=== PATIENT | female | born 1995 | race Caucasian/White ===

== ENCOUNTER → 2021-05-19 09:41 | Outpatient (CLI) | payer OTHER, SELFPAY | PROVIDERS: PCP Internal Medicine; Visit Provider Nurse Practitioner | DX: U07.1 COVID-19 (principal) | CPT/HCPCS: C9803; U0003; U0005 ==

== ENCOUNTER 2024-02-28 08:06 | Emergency (ER) | payer BC, SELFPAY ==
[2024-02-28] VITALS (11 sets, daily range): BP systolic 101–160; BP diastolic 63–106; PULSE 56–108; RESP 16–20; TEMP 36.5–36.9; O2SAT 96–100; BMI 60.3; BMI 54.8
--- NOTE | 2024-02-28 08:45 | EXP.UTC ---
Discharge Plan Disposition Patient Disposition: Home, Self-Care Prescriptions Prescriptions: No Action norethindrone-e.estradiol-iron [ (28)] 1.5 mg-30 mcg (21)/75 mg (7) tablet 1.5 tab PO DAILY Patient Comments: TAKE 1 TABLET BY MOUTH 1 TIME EACH DAY sertraline 100 mg tablet 50 mg PO DAILY lisinopril-hydrochlorothiazide 10-12.5 mg tablet 10 tab PO DAILY Referrals Follow up/Referrals: Yeison Slade [Primary Care Provider] - See instructions Activity Restrictions/Add. Instructions Additional Instructions/Restrictions: Call your family doctor to establish care for this visit to the emergency department and schedule follow-up within 48 hours to ensure improvement. If you have any worsening of your condition or any other concerning signs or symptoms, return to the emergency department or your primary care doctor for further evaluation. Clinical Impressions Clinical Impression: Gastroenteritis Instructions Patient Instructions: DI for Acute Abdominal Pain Print Language Print Language: Nigerien Discharge ED Provider: Shree Staples [facility] [place] General Chief complaint: Abdominal Pain Stated complaint: abd pain, vomiting Mode of Arrival: Ambulatory Source of Information: Patient Time Seen by Provider: 02/28/24 08:45 Description of Symptoms (Recalled from Triage Doc. by RN): STATES ALL OVER ABD PAIN INCLUDING EPIGASTIC AREA, CRAMPING ALL OVER. STATES LOOSE BMS THAT ARE GREASY/OILY LOOKING, NO SOLID BM IN A FEW WEEKS, VOMITED THIS AM D/T THE PAIN HEENT Symptoms (Recalled from RN notes): No Resp Symptoms (Recalled from RN notes): No Skin Symptoms (Recalled from RN notes): No MS Symptoms (Recalled from RN notes): No Functional Status (Recalled from RN notes): WNL History of Present Illness Provider Complaint: Patient states that she has been having diffuse pain in her abdomen for several days that has continued to get worse States she has been having soft greasy stools on and off for several weeks and had similar episode a couple weeks ago that went away but this started a couple days ago and has continued to get worse States started in her lower abdomen and now her abdomen is sore and hurts all over states that when she is up moving around the pain gets worse and this morning it was hurting so bad it made her sick at her stomach, reports pain 10/22 Related Data Home Medications ?Medication ?Instructions ?Recorded ?Confirmed lisinopril 10 10 tab PO DAILY 02/28/24 02/28/24 mg-hydrochlorothiazide 12.5 mg tablet norethindrone 1.5 mg-ethinyl 1.5 tab PO DAILY 02/28/24 02/28/24 estradiol 30 mcg(21)/iron 75 mg(7) tablet (Junel FE 1.30 (28)) sertraline 100 mg tablet 50 mg PO DAILY 02/28/24 02/28/24 Allergies Allergy/AdvReac Type Severity Reaction Status Date / Time No Known Allergies Allergy Verified 02/28/24 09:20 Worker's Comp Is this a Worker's Comp case?: No [facility] Disclaimer: The information contained in this section may have been updated after the patient was seen, as this information can be updated by other users. Social History Smoking Status: Never smoker alcohol intake: never current occupational status: other Travel in the last 8 weeks: None ROS Obtained: Yes All systems reviewed & no additional complaints except as documented and Yes Systems reviewed as appropriate & no additional complaints except as documented Constitutional Constitutional: Reports system reviewed and no additional complaints, except as documented, Reports as per HPI and Denies fever(s) ENT Ears, Nose, Mouth, and Throat: Reports system reviewed and no additional complaints, except as documented and Reports as per HPI Cardiovascular Cardiovascular: Reports system reviewed and no additional complaints, except as documented and Reports as per HPI Respiratory Respiratory: Reports system reviewed and no additional complaints, except as documented and Reports as per HPI Gastrointestinal Gastrointestingal: Reports system reviewed and no additional complaints, except as documented, as per HPI, abdominal pain, cramping, vomiting (x 1 this am from the pain) and other (reports soft greasy stools for several weeks) Physical Exam General General appearance: alert and in no apparent distress Respiratory Respiratory exam: Present normal lung sounds bilaterally; Absent respiratory distress or wheezes Cardiovascular Cardiovascular exam: Present regular rate, normal rhythm and normal heart sounds Abdominal Exam Abdominal exam: Present soft and tenderness (reports diffuse abdominal pain ); Absent distention Neurological Exam Neurological exam: Present alert, oriented X3 and normal gait Medical Decision Making Medical Records Screening: Per USPSTF and CDC recommendations, given the prevalence of disease in our region, it is our hospital?s policy to screen for HIV and viral Hepatitis for all patients aged 18 and over and those with ongoing risk factors. Luigi Inquiry Pt receiving controlled substance: No Luigi was queried for this patient: No Vital Signs: 02/28/24 08:28 Temperature 98.5 F Temperature Source Oral Pulse Rate [Left Brachial] 108 H Respiratory Rate 20 Blood Pressure [Left Arm] 160/94 H Blood Pressure Mean [Left Arm] 116 02 Sat by Pulse Oximetry 96 Lab Data 02/28/24 09:33 02/28/24 09:33 Medical Decision Narrative: Patient complaining of diffuse abdominal pain that started a couple days ago Reports pain is all over and worse if she is up moving around, reports greasy like stools for several weeks Due to complaints of abdominal pain discussed with patient about transfer to the ED and she agreed Called ED and patient was moved to the ED for furhter work up and evaluaton
[2024-02-28 09:19] LABS: Microscopic, Urine URINE MICROSCOPIC (MICROSCOPIC)
[2024-02-28 09:24] LABS: Appearance,Urine SL CLOUDY (Clear); Bilirubin,Urine Negative (Negative); Blood, Urine 1+ (Negative); Color,Urine YELLOW (Yellow); Glucose,Urine (UA) Negative (Negative); Ketones,Urine Negative (Negative); Leukocyte Esterase,Urine Negative (Negative); Nitrate,Urine Negative (Negative); Protein,Urine TRACE (Negative); Specific Gravity, Urine 1.025 (1.005-1.030); Urobilinogen,Urine 0.2 EU/dl (0.2)
[2024-02-28] MEDS: ONDANSETRON 4MG/2ML VIAL 4 MG IV (09:27)
[2024-02-28 09:31] LABS: Bacteria,Urine Trace /lpf; WBC,Urine Occasional #/hpf (0-3)
--- NOTE | 2024-02-28 09:33 | ED_ITS ---
Discharge Plan Disposition Patient Disposition: Home, Self-Care Prescriptions Prescriptions: No Action norethindrone-e.estradiol-iron [ (28)] 1.5 mg-30 mcg (21)/75 mg (7) tablet 1.5 tab PO DAILY Patient Comments: TAKE 1 TABLET BY MOUTH 1 TIME EACH DAY sertraline 100 mg tablet 50 mg PO DAILY lisinopril-hydrochlorothiazide 10-12.5 mg tablet 10 tab PO DAILY Referrals Follow up/Referrals: Yeison Slade [Primary Care Provider] - See instructions Activity Restrictions/Add. Instructions Additional Instructions/Restrictions: Call your family doctor to establish care for this visit to the emergency department and schedule follow-up within 48 hours to ensure improvement. If you have any worsening of your condition or any other concerning signs or symptoms, return to the emergency department or your primary care doctor for further evaluation. Clinical Impressions Clinical Impression: Gastroenteritis Instructions Patient Instructions: DI for Acute Abdominal Pain Print Language Print Language: Citizen Of [place] Discharge ED Provider: Shree Staples General Adult HPI General Chief complaint: Abdominal Pain Stated complaint: abd pain, vomiting Time Seen by Provider: 02/28/24 08:45 Mode of Arrival: Ambulatory Source of Information: Patient Limitations: No Limitations Description of Symptoms (Recalled from ER Triage Doc. by RN): Pt. presents to the ED, transferred from the [facility], with complaints of abdominal pain asnd cramping x 2 weeks. She states it started as epigastric pain about 2 weeks ago. Since then the pain has spread over her abdomen and she has been having greasy, watery stools. She rates the pain 6/10 currently. History of Present Illness HPI narrative: Please note that above description of symptoms, in this electronic medical record under categorization of recalled from ER triage doctor by RN are reflective of an initial nursing assessment, however, is not reflective of my full history and physical exam that was personally taken and clarified. Consequentially, this preceding description of symptoms, which may include the patient's categorized chief complaint in the EMR, do not reflect my personal clinical impression, and the ultimate description of history of present illness and patient stated complaints should be deferred to this section of the note. Unless stated otherwise or congruent with this section of the note, additional signs, symptoms, or incongruence should be interpreted as inaccurate with my clinical impression. Related Data Home Medications ?Medication ?Instructions ?Recorded ?Confirmed lisinopril 10 10 tab PO DAILY 02/28/24 02/28/24 mg-hydrochlorothiazide 12.5 mg tablet norethindrone 1.5 mg-ethinyl 1.5 tab PO DAILY 02/28/24 02/28/24 estradiol 30 mcg(21)/iron 75 mg(7) tablet (Junel FE 1.5/30 (28)) sertraline 100 mg tablet 50 mg PO DAILY 02/28/24 02/28/24 Allergies Allergy/AdvReac Type Severity Reaction Status Date / Time No Known Allergies Allergy Verified 02/28/24 09:20 [facility] Disclaimer: The information contained in this section may have been updated after the patient was seen, as this information can be updated by other users. Social History Smoking Status: Never smoker alcohol intake: never current occupational status: other Travel in the last 8 weeks: None ROS Obtained: Yes All systems reviewed & no additional complaints except as documented Physical Exam General General appearance: alert, in no apparent distress and obese Head Head exam: atraumatic and normocephalic Eye Eye exam: Present normal appearance, PERRL and EOMI Neck Neck exam: Present normal inspection, full ROM and trachea midline Respiratory Respiratory exam: Absent respiratory distress, wheezes, stridor, accessory muscle use or prolonged expiratory phase Cardiovascular Cardiovascular exam: Present regular rate, normal rhythm and other (Pulses equal symmetric in upper and lower extremities) Abdominal Exam Abdominal exam: Present soft and tenderness; Absent distention, guarding, rebound or pulsatile mass Abdominal tenderness: Present diffuse and mild Extremities Exam Extremities exam: Absent edema Neurological Exam Neurological exam: Present alert, oriented X3 and CN II-XII intact; Absent motor sensory deficit Skin Skin exam: Present warm and dry; Absent diaphoresis or erythema Medical Decision Making Medical Records Medical records reviewed: Yes I reviewed the patient's medical records. Screening: Per USPSTF and CDC recommendations, given the prevalence of disease in our region, it is our hospital?s policy to screen for HIV and viral Hepatitis for all patients aged 18 and over and those with ongoing risk factors. Luigi Inquiry Pt receiving controlled substance: No Luigi was queried for this patient: No Vital Signs: 02/28/24 08:28 02/28/24 09:11 02/28/24 09:33 Temperature 98.5 F 97.7 F Temperature Source Oral Oral Pulse Rate 81 Pulse Rate [Left Brachial] 108 H 105 H Respiratory Rate 20 16 Blood Pressure 140/63 Blood Pressure [Left Arm] 160/94 H 143/106 H Blood Pressure Mean Blood Pressure Mean [Left Arm] 116 118 Blood Pressure Source [Left Arm] Automatic Cuff Blood Pressure Position [Left Arm] Sitting 02 Sat by Pulse Oximetry 96 100 99 Oxygen Delivery Method Room Air Room Air 02/28/24 10:00 02/28/24 10:30 02/28/24 11:00 Temperature Temperature Source Pulse Rate 78 56 L 74 Pulse Rate [Left Brachial] Respiratory Rate Blood Pressure 131/71 115/68 115/71 Blood Pressure [Left Arm] Blood Pressure Mean Blood Pressure Mean [Left Arm] Blood Pressure Source [Left Arm] Blood Pressure Position [Left Arm] 02 Sat by Pulse Oximetry 98 98 98 Oxygen Delivery Method Room Air Room Air Room Air 02/28/24 11:31 02/28/24 12:01 02/28/24 12:30 Temperature Temperature Source Pulse Rate 74 82 78 Pulse Rate [Left Brachial] Respiratory Rate Blood Pressure 108/68 L 127/77 128/71 Blood Pressure [Left Arm] Blood Pressure Mean 93 Blood Pressure Mean [Left Arm] Blood Pressure Source [Left Arm] Blood Pressure Position [Left Arm] 02 Sat by Pulse Oximetry 98 98 99 Oxygen Delivery Method Room Air Room Air Room Air 02/28/24 13:00 Temperature Temperature Source Pulse Rate 84 Pulse Rate [Left Brachial] Respiratory Rate Blood Pressure 115/83 Blood Pressure [Left Arm] Blood Pressure Mean Blood Pressure Mean [Left Arm] Blood Pressure Source [Left Arm] Blood Pressure Position [Left Arm] 02 Sat by Pulse Oximetry 98 Oxygen Delivery Method Room Air Lab Data Lab Results 02/28/24 09:06: Urine Color Yellow, Urine Appearance Sl cloudy, Urine pH 8.0, Ur Specific [place] 1.025, Urine Protein Trace, Urine Glucose (UA) Negative, Urine Ketones Negative, Urine Blood 1+ A, Urine Nitrate Negative, Urine Bilirubin Negative, Urine Urobilinogen 0.2, Ur Leukocyte Esterase Negative, Urine RBC 3-5, Urine WBC Occasional, Ur Squamous Epith Cells 5-10, Urine Bacteria Trace 02/28/24 09:33: WBC 12.2 H, RBC 4.29, Hgb 13.4, Hct 35.2 L, MCV 82.1, MCH 31.2, MCHC 38.0 H, RDW 14.5, Plt Count 342, MPV 7.1 L, Neut % (Auto) 77.6, Lymph % (Auto) 17.5, Mayes % (Auto) 4.0, Eos % (Auto) 0.4, Baso % (Auto) 0.5, Neut # (Auto) 9.5 H, Lymph # (Auto) 2.1, Mayes # (Auto) 0.5, Eos # (Auto) 0.0, Baso # (Auto) 0.1, Sodium 134 L, Potassium 3.9, Chloride 103, Carbon Dioxide 25, Anion Gap 9.9, BUN 14, Creatinine 0.60, Estimated Creat Clear 111, Estimated GFR 120, Est GFR ( Amer) 145, Glucose 112 H, Calcium 9.6, Total Bilirubin 0.5, AST 31, ALT 23, Alkaline Phosphatase 100, Total Protein 7.0, Albumin 4.1, Globulin 2.9, Albumin/Globulin Ratio 1.4, Lipase 38, HCG, Quant < 2 02/28/24 09:33: HCG, Quant Cancelled, HIV 1&2 Antibody Rapid Nonreactive 02/28/24 09:33 02/28/24 09:33 Orders (Tests/Meds): ED MEDICATIONS Discontinued Medications Generic Name Dose Route Start Last Admin Trade Name Freq PRN Reason Stop Dose Admin Acetaminophen 1,000 mg 02/28/24 09:38 02/28/24 09:50 Acetaminophen 500mg Tab PO 02/28/24 09:39 1,000 mg ONCE ONE Administration Al Hydrox/Mg Hydrox/Simethicone 30 ml 02/28/24 09:39 02/28/24 09:50 Aluminum/Magnesium/Simethicone 30ml Udc PO 02/28/24 09:40 30 ml ONCE ONE Administration Iopamidol 75 ml 02/28/24 10:47 02/28/24 10:49 Iopamidol-370 (76%);100ml Bottle IV 02/28/24 10:48 75 ml ONCE ONE Administration Ketorolac Tromethamine 15 mg 02/28/24 09:38 02/28/24 09:50 Ketorolac 30mg/Ml Vial IV 02/28/24 09:39 15 mg ONCE ONE Administration Ondansetron HCl 4 mg 02/28/24 09:03 02/28/24 09:27 Ondansetron 4mg/2ml Vial IV 02/28/24 09:04 4 mg ONCE ONE Administration Sodium Chloride 10 ml 02/28/24 10:47 02/28/24 10:49 Sodium Chloride 0.9% 10ml Syr (Rad Only) IV 02/28/24 10:48 10 ml ONCE ONE Administration ORDERS Category Date Time Status CT abdomen pelvis w con Stat Cat Scan 02/28/24 10:35 Completed POCUS Point of Care (ER Only) Stat Exams 02/28/24 09:03 Completed CBC w/Auto Diff [Complete Blood Count Auto Diff] Stat Lab 02/28/24 09:33 Completed CMP [Comprehensive Metabolic Panel] Stat Lab 02/28/24 09:33 Completed HCG,Quantitative Stat Lab 02/28/24 09:33 Completed HIV (1&2) Antibody Rapid Stat Lab 02/28/24 09:33 Completed Hep C Ab with Reflex to RNA Stat Lab 02/28/24 09:33 Received Lipase Stat Lab 02/28/24 09:33 Completed UA [Urinalysis and Microscopic] Stat Lab 02/28/24 09:06 Completed Medical Decision Narrative: 29-year-old female history of section presenting with abdominal pain. Patient states that she has had abdominal pain since yesterday,, however she has had abdominal pain over the past couple of weeks. States that she has had 2 weeks of nonbloody, not mucousy diarrhea as well as nausea. Initially a couple weeks ago, pain was epigastric, radiated to bilateral upper quadrants. Since that time, waxed and waned. Went away for a couple of days. Came back yesterday and is now bilateral lower quadrants, radiates diffusely throughout her abdomen. No fevers or chills, urinary symptoms, vaginal discharge or bleeding, or any other concerns. Is never had pain like this in the past. Still has gallbladder and appendix. History was obtained via conversation with patient. On arrival, patient hemodynamically stable, alert, oriented x4, appropriate, GCS 15, moving all extremities spontaneously, pupils equal and reactive to light. Full physical exam performed and significant for obese. Female in no acute distress. Cardiopulmonary exam normal. Abdomen soft, nondistended, but diffusely tender with mild tenderness. No overlying skin changes. Negative Marcum's and McBurney's point tenderness. Differential includes PUD, gastritis, enteritis, gastroenteritis, pancreatitis, SBO, colitis, diverticulitis, nephrolithiasis, UTI, , cholecystitis, choledocholithiasis, appendicitis, hepatitis, torsion, aortic pathology, mesenteric ischemia among others. Patient placed on continuous cardiac monitoring and continuous pulse ox with initial blood pressure 143/106, heart rate 105, saturation 100% on room air. Patient was given Zofran, Toradol, acetaminophen for symptomatic management and correction of underlying abnormalities. Bedside [id number] ultrasound with negative right upper quadrant findings. Normal gallbladder, nothing to explain patient's pain workup independently interpreted and significant for mild leukocytosis 12.2 with mild neutrophilic predominance. Nonactionable chemistry with normal kidney function and LFTs. hCG and lipase negative. Urinalysis contaminated sample with trace bacteria. No signs of UTI. On reevaluation, patient states that she is feeling much better, although cramping and mild pain is still there. Conversation had with patient regarding utility and risks versus benefits of CT versus not, opted for CT for further information after shared decision making, To make sure everything is okay. On independent interpretation of imaging, patient has diffuse enteritis with free fluid in the abdomen and pelvis without free air, evidence of perforation, or other acute abnormality. See radiology read for full review of final results. On reevaluation, patient still resting comfortably. Given patient presentation, workup, history, this most likely represents gastroenteritis. Because patient at baseline without signs or symptoms of clinical decompensation, deemed appropriate for discharge. Results were relayed to patient who voiced understanding and were agreeable to outpatient management and follow up. I discussed my clinical impression with patient and answered all questions. At this time, the evidence for any other entities in the differential is insufficient to warrant any further testing or ED observation. This was explained as well. Advisory was given that persistent or worsening symptoms require further evaluation. I confirmed the understanding of this discussion. Range Rider disclaimer Much of this encounter note is an electronic social work nurse spoken language to printed text. Electronic social work nurse of the spoken language may permit errors. Although I have reviewed the note, some errors may still exist. Procedures Limited Ultrasound Indication:: Limited RUQ ultrasound Indication: Abdominal pain, crampy Identified structures: -Gallbladder -Gallbladder wall -Common bile duct -Liver Findings: Sonographic Marcum sign: Absent Gallstones: Absent Sludge: Absent Pericholecystic fluid: Absent Maximal GB wall thickness (mm) (normal is </= 3mm): Normal Common bile duct width (mm) (normal is </= 6mm): Too small to visualize Gallbladder width (cm) (normal is < 4cm): Normal Gallbladder length (cm) (normal is < 10cm): Normal Impression: Normal gallbladder No evidence of cholelithiasis No evidence of common bile duct or intrahepatic ductal dilation Images were saved to permanent archive The study was technically adequate CPT 93011-81 This study was performed by me, and I personally interpreted all images/videos. Based on my clinical judgement, these images were adequate and did not necessitate further imaging. Critical Care Critical Care Time Critical Care Time: No
[2024-02-28] MEDS: ALUMINUM/MAGNESIUM/SIMETHICONE 30ML UDC 30 ML PO (09:50)
[2024-02-28] MEDS: ACETAMINOPHEN 500MG TAB 1000 MG PO (09:50)
[2024-02-28] MEDS: KETOROLAC 30MG/ML VIAL 15 MG IV (09:50)
[2024-02-28 09:53] LABS: Basophils # 0.1 K/mm3 (0-0.2); Basophils % 0.5 % (0.1-2.0); Eosinophils % 0.4 % (0.1-12.0); Hematocrit 35.2 % (37.0-47.0); Hemoglobin 13.4 g/dL (12.2-16.2); Lymphocytes # 2.1 K/mm3 (0.7-4.5); Lymphocytes % 17.5 % (10-50); Mean Corpuscular Hemoglobin 31.2 pg (27.0-31.2); Mean Corpuscular Volume 82.1 fl (81-99); Mean Platelet Volume 7.1 fl (7.4-10.4); Monocytes # 0.5 K/mm3 (0.1-1.0); Neutrophils # 9.5 K/mm3 (1.8-7.8); Neutrophils % 77.6 % (37.0-80.0); Platelet Count 342 K/mm3 (142-424); Red Blood Count 4.29 M/mm3 (4.20-5.40); Red Cell Distribution Width 14.5 % (11.5-17.5); White Blood Count 12.2 K/mm3 (4.8-10.8)
[2024-02-28 10:00] LABS: Albumin Level 4.1 g/dl (3.5-5.0); Chloride 103 mmol/L (98-107)
[2024-02-28 10:01] LABS: Potassium 3.9 mmoL/L (3.5-5.1); Sodium 134 mmol/L (136-145)
[2024-02-28 10:03] LABS: Alanine Aminotransferase 23 U/L (12-78); Anion Gap 9.9 mEq/L (5-15); Aspartate Amino Transferase 31 U/L (14-36); Blood Urea Nitrogen 14 mg/dl (7-17); Carbon Dioxide 25 mmol/L (22.0-30.0); Creatinine Clearance Estimated 111 mL/min (50-200); Estimated Glomerular Filt Rate 120 ml/min (>60); GFR (African American) 145 ML/MIN (>60)
[2024-02-28 10:04] LABS: Albumin/Globulin Ratio 1.4 (1.1-1.8); Alkaline Phosphatase 100 U/L (38-126); Bilirubin,Total 0.5 mg/dl (0.2-1.3); Calcium 9.6 mg/dl (8.4-10.2); Globulin 2.9 g/dL (1.3-3.2); Glucose 112 mg/dl (74-100); Lipase 38 U/L (23-300)
[2024-02-28 10:22] LABS: HCG,Quantitative < 2 mIU/ml (0-5.42)
--- NOTE | 2024-02-28 10:35 | CT_ITS ---
FINAL REPORT TECHNIQUE: Postcontrast axial images through the abdomen and pelvis were performed. This study was performed with techniques to keep radiation doses as low as reasonably achievable, (ALARA). Individualized dose reduction techniques using automated exposure control or adjustment of mA and/or kV according to the patient's size were employed. CLINICAL HISTORY: diffuse cramps, worse on sides. diarrhea x14d FINDINGS: Abdomen: The lung bases are clear. The liver parenchyma is homogeneous. The gallbladder is present. The spleen is unremarkable. The adrenals are normal. The pancreas is unremarkable. The kidneys enhance appropriately. The aorta is normal in caliber. There is a small amount of ascites throughout the upper abdomen. There is extensive mucosal thickening throughout the proximal jejunum. Pelvis: The appendix is not identified. The urinary bladder is unremarkable. There is moderate ascites in the pelvis. Fluid demonstrates a mean attenuation value of 8 Hounsfield units. The uterus is anteverted. IMPRESSION: Extensive mucosal inflammatory reaction throughout the jejunum concerning for acute infectious or inflammatory enteritis. Small to moderate ascites in the abdomen and pelvis likely related to the jejunal process. Reviewed, Interpreted and Dictated by Logan Davis MD Transcribed by Delphine Marshall Authenticated and [facility]
[2024-02-28] MEDS: SODIUM CHLORIDE 0.9% 10ML SYR (RAD ONLY) 10 ML IV (10:49)
[2024-02-28] MEDS: IOPAMIDOL-370 (76%);100ML BOTTLE 75 ML IV (10:49)
--- NOTE | 2024-02-28 11:00 | PC.NURSE ---
Pt given water for PO challenge
[2024-02-28 11:59] LABS: HIV (1&2) Antibody Rapid NONREACTIVE (NONREACTIVE)
[2024-02-29 05:27] LABS: HCV Ab Non Reactive (Non Reactive)
== END 2024-02-28 13:40 | disposition home or self-care (01) ==
LOC: UTC 08:12 → ER 08:56
PROVIDERS: Emergency Provider Emergency Medicine; PCP Internal Medicine
DX: K52.9 Noninfective gastroenteritis and colitis, unspecified (principal); R10.9 Unspecified abdominal pain; R11.11 Vomiting without nausea
CPT/HCPCS: 74177; 80053; 81001; 83690; 84702; 85025; 86803; 87389; 96374; 96375; 99285; J1885; J2405; Q9967

== ENCOUNTER 2024-04-16 11:22 | Outpatient (CLI) | payer BC, SELFPAY ==
[2024-04-16 12:08] LABS: Iron 51 ug/dL (37-170)
[2024-04-16 12:17] LABS: Total Iron Binding Capacity 442 ug/dL (265-497)
[2024-04-16 12:44] LABS: Ferritin 18.7 ng/ml (6.24-137)
[2024-04-17 17:01] LABS: Deamidated Gliadin Abs, IgA 2 units (0-19); Deamidated Gliadin Abs, IgG 2 units (0-19); Tissue Transglutaminase IgA Ab <2 U/mL (0-3); Tissue Transglutaminase IgG Ab <2 U/mL (0-5)
[2024-04-18 13:11] LABS: Endomysial IgA Antibody Negative (Negative)
[2024-04-19 08:22] LABS: Reticulin IgA Antibody Negative titer (Neg:<1:2.5)
[2024-04-19 15:13] LABS: Saccharomyces cerevisiae, IgA <20.0 Units (0.0-24.9); Saccharomyces cerevisiae, IgG <20.0 Units (0.0-24.9)
== END 2024-04-16 23:59 | disposition home or self-care (01) ==
LOC: LAB 11:23
PROVIDERS: PCP Internal Medicine; Visit Provider Internal Medicine Gastroenterology
DX: R19.5 Other fecal abnormalities (principal); R14.0 Abdominal distension (gaseous); K52.9 Noninfective gastroenteritis and colitis, unspecified; D64.9 Anemia, unspecified; R10.84 Generalized abdominal pain
CPT/HCPCS: 36415; 82728; 83516; 83540; 83550; 86255; 86256; 86671

== ENCOUNTER 2024-06-19 06:17 | Day surgery (SDC) | payer BC, SELFPAY ==
[2024-06-17 13:49] VITALS: BMI 56.7
[2024-06-19 06:54] VITALS: BP 118/64; PULSE 75; RESP 18; TEMP 36.8; O2SAT 97
[2024-06-19 06:59] LABS: Urine Pregnancy, HCG Qual. Negative (Negative)
[2024-06-19] MEDS: LACTATED RINGERS 1000ML 1,000 ML 50 ML IV (07:04)
--- NOTE | 2024-06-19 07:32 | EXP.ANES.CKL ---
[facility] Disclaimer: The information contained in this section may have been updated after the patient was seen, as this information can be updated by other users. Medical History Anxiety History of COVID-19 History of gastroesophageal reflux (GERD) Hypertension Surgical History [place] teeth removed History of endometrial ablation H/O adenoidectomy History of section History of tonsillectomy Family History Other Breast cancer Cancer Colon cancer Social History (Updated 06/19/24 @ 07:02 by Luz Santos RN) Smoking Status: Former smoker tobacco type: cigarettes packs per day: 1 alcohol intake: never substance use type: denies use current occupational status: employed Travel in the last 8 weeks: None caffeine: Yes [facility] Anesthesia Checklist Patient Identification Patient Identification: Verbal (Name & ) Structural Data Admitted From: Home Planned Operative Procedure/s: egd NPO Status Verified Time NPO: 00:00 Airway Assessment Mallampati Score:: Class III C-Spine Mobility Assessed: Yes TMJ Mobility Assessed: Yes Dentition: Good Dentition Neurological Assessment Level of Consciousness: Awake, Alert and Appropriate Anesthesia Plan Anesthesia Risk discussed: Yes Anesthesia Plan: Verified ASA Class: III Anesthesia Type: MAC
--- NOTE | 2024-06-19 07:58 | P.HP_ITS ---
History of Present Illness *Admission Date: 06/19/24 *Reason for visit:: Abdominal pain/bloating and abnormal CAT scan *History of present illness: Mrs. Collins is a 29-year-old female who is here for initial gastroenterology consultation. The patient has had recurring abdominal pain and was in the emergency department on February 27 at which time she had a CAT scan of the abdomen and pelvis.This did show fairly extensive mucosal inflammatory reaction throughout the jejunum concerning for infectious enteritis. At that time, her white blood cell count was 12,000. She had normal hemoglobin 13.4 and her hematocrit was 35.2. Additional labs showed normal liver chemistries and normal lipase 38. The patient does state that this all began 6 to 7 months ago and she has had more frequent episodic pain in the last couple of months. This does start out like menstrual cramps and is in the lower abdomen but then begins to move upwards in a frame like pattern into the right upper quadrant and across to the left upper quadrant. She does state that when she lays on either side it hurts more on that side. She has had moderate bloating but no gassiness or belching. She does get nausea and vomiting with the intensity of pain. She has had loose stools that began 6 to 7 months ago but not watery. She does feel as if she fully evacuates. She has gained some weight and had talked about GLP-1 peptide treatment with her PCP. [facility] Disclaimer: The information contained in this section may have been updated after the patient was seen, as this information can be updated by other users. Medical History Anxiety History of COVID-19 History of gastroesophageal reflux (GERD) Hypertension Surgical History Stow teeth removed History of endometrial ablation H/O adenoidectomy History of section History of tonsillectomy Family History Other Breast cancer Cancer Colon cancer Social History (Updated 06/19/24 @ 07:33 by Nito Gutierrez CRNA) Smoking Status: Former smoker tobacco type: cigarettes packs per day: 1 alcohol intake: never substance use type: denies use current occupational status: employed Travel in the last 8 weeks: None caffeine: Yes Have you lived/traveled outside [place] in past 30 days?: No Contact w/someone who lives/traveled outside [place] past 30 days?: No Exposure to someone with infectious disease in past 14 days?: No Do you have a fever (greater than 100.4 F or 38 C)?: No Have you tested positive for COVID-19: Yes Exposed to someone with COVID-19 in past 14 days?: No Do you have a sore throat?: No Do you have a cough?: No Do you have any weakness?: No Are you experiencing any nausea/vomitting?: No Do you have any diarrhea?: No Are you experiencing any unusual bleeding?: No Do you have any muscle aches/pain?: No Do you have any abdominal pain?: No Are you experiencing loss of taste or smell?: No Review of Systems Review of Systems Review of systems (narrative): Negative *Cardiovascular Comments: Negative *Gastrointestinal Comments: Negative *Genitourinary Comments: Negative *Musculoskeletal Comments: Negative *Neurologic Comments: Negative Meds Home Medications and Allergies Home Medications ?Medication ?Instructions ?Recorded ?Confirmed ?Type lisinopril 10 10 tab PO DAILY 02/28/24 06/19/24 History mg-hydrochlorothiazide 12.5 mg tablet sertraline 100 mg tablet 100 mg PO DAILY 02/28/24 06/19/24 History New Prescriptions to Start Prescriptions: Allergies Allergy/AdvReac Type Severity Reaction Status Date / Time No Known Allergies Allergy Verified 06/19/24 06:53 Exam Data for Last 24 hours Vital signs and Labs for Last 24 Hours: Temp Pulse Resp BP Pulse Ox O2 Del Method 98.3 F 75 18 118/64 97 Room Air 06/19/24 06:54 06/19/24 06:54 06/19/24 06:54 06/19/24 06:54 06/19/24 06:54 06/19/24 06:54 Laboratory Results - last 24 hr 06/19/24 06:42: Urine HCG, Qual Negative I & O for Last 24 hours: Intake & Output 06/16/24 06/17/24 06/18/24 06/19/24 23:59 23:59 23:59 23:59 Weight 310 lb *Routine HEENT Exam Head: Present normocephalic Eye: Present EOMI and PERRL ENT: Present mucous membranes moist *Routine Neck Exam Neck: Present supple *Routine Respiratory Exam Respiratory: Present CTA bilaterally *Routine Cardiovascular Exam Cardiovascular: Present RRR *Routine Abdominal Exam Abdominal: Present soft and normoactive bowel sounds; Absent tenderness *Routine Rectal Exam Rectal:: deferred *Routine Genitalia Exam Genitalia:: deferred *Routine Extremities Exam Extremities: Absent cyanosis, clubbing or edema *Routine Skin Exam Skin: Present warm; Absent rash *Routine Neurological Exam Neurological: Present alert and oriented X3 Assessment and Plan *Assessment and plan (1) Jejunitis: Status: Acute Category: Medical Code(s): K52.9 - Noninfective gastroenteritis and colitis, unspecified (2) Bloating: Status: Acute Category: Medical Code(s): R14.0 - Abdominal distension (gaseous) (3) Loose bowel movements: Status: Acute Category: Medical Code(s): R19.5 - Other fecal abnormalities (4) Borderline anemia: Status: Acute Category: Medical Code(s): D64.9 - Anemia, unspecified Plan A/P: 1. Abnormal CAT scan with evidence of extensive mucosal inflammatory reaction throughout the jejunum with associated abdominal pain and bloating is the preprocedural diagnosis. The patient will be anesthetized/sedated using MAC sedation. The patient has been seen and examined. Cardiac and lung assessment prior to the examination is stable. Proceed with planned EGD/enteroscopy
[2024-06-19 08:00] VITALS: O2SAT 100
--- NOTE | 2024-06-19 08:11 | [facility].PROCNOTE ---
[facility] Procedure Note Date: 06/19/24 Time: 08:27 Procedure Note:: Small bowel enteroscopy procedure Report: Endoscopy/small bowel enteroscopy with cold biopsies Endoscopost: Chato Lamas II, MD Referring Physician: Yeison Slade M.D. Date of Procedure: June 19, 2024 Equipment: Olympus GIF 190 standard upper endoscope Sedation: MAC sedation Indications: Mrs. Collins is a 29-year-old female who is here for diagnostic enteroscopy. The patient has had recurring abdominal pain and was in the emergency department on February 27 at which time she had a CAT scan of the abdomen and pelvis.This did show fairly extensive mucosal inflammatory reaction throughout the jejunum concerning for infectious enteritis. At that time, her white blood cell count was 12,000. She had normal hemoglobin 13.4 and her hematocrit was 35.2. Additional labs showed normal liver chemistries and normal lipase 38. The patient does state that this all began 6 to 7 months ago and she has had more frequent episodic pain in the last couple of months. This does start out like menstrual cramps and is in the lower abdomen but then begins to move upwards in a frame like pattern into the right upper quadrant and across to the left upper quadrant. She does state that when she lays on either side it hurts more on that side. She has had moderate bloating but no gassiness or belching. She does get nausea and vomiting with the intensity of pain. She has had loose stools that began 6 to 7 months ago but not watery. She does feel as if she fully evacuates. She has gained some weight and had talked about GLP-1 peptide treatment with her PCP. Since her initial visit with me on 04/16/2024, she has had no recurring pain. Procedure: Prior to the procedure, a history and physical exam was performed, and patient's medications and allergies were reviewed. The risks, benefits and alternatives of the sedation and procedure were discussed with the patient. All questions were answered and informed consent was obtained. The patient was brought to the procedure room. Patient identification and proposed procedure were verified by the physician and the nurse. The patient was placed in a left lateral decubitus position and the scope was passed under direct vision. Throughout the procedure, the patient's blood pressure, pulse, and oxygen saturations were monitored continuously. The upper GI endoscopy was accomplished without difficulty. The patient tolerated the procedure well. Findings: The scope was passed directly into the upper esophagus and advanced to the proximal to mid jejunum and approximately 40 to 50 cm distal to the ligament of Treitz. The jejunum mucosa and conniventes were entirely normal as was the post bulbar duodenum and duodenal bulb were normal with normal mucosa and conniventes. Cold biopsies were taken from the duodenum to rule out celiac disease. There was no scalloping. The scope was withdrawn through a normal duodenal bulb and pylorus into the stomach. The antrum was normal. There was some mosaic/reticular pattern to the mucosa in the body and fundus and biopsies were taken to rule out H. pylori. Upon retroflexion, there was a small 1 to 2 cm sliding hiatal hernia. The scope was then withdrawn into the esophagus. There was a single superficial ulceration of the distal esophagus at the GE junction consistent with grade B (LA classification) reflux esophagitis. The remainder of the esophageal mucosa was normal. Impression: 1. Grade B (LA classification) reflux esophagitis with small 1 to 2 cm sliding hiatal hernia 2. Mild chronic gastritis?rule out H. pylori 3. Normal-appearing proximal and mid jejunum with enteroscopy Plan: I will follow-up the biopsies. The patient has had no recurrences since her last episode prior to seeing me initially. I would continue the dietary measures and psyllium Konsyl. I am going to add PPI therapy (omeprazole).The patient did have mild iron deficiency and I had recommended [id number] ferrous sulfate. Also recommended Iberogast. I would consider Hemoccult testing.
[2024-06-19 08:26] VITALS: BP 122/70; PULSE 87; RESP 18; TEMP 36.2; O2SAT 91
[2024-06-19 08:36] VITALS: BP 136/68; PULSE 72; RESP 18; O2SAT 93
[2024-06-19 08:46] VITALS: BP 131/87; PULSE 78; RESP 18; O2SAT 100
[2024-06-19 08:56] VITALS: BP 116/69; PULSE 78; RESP 18; O2SAT 97
== END 2024-06-19 09:00 | disposition home or self-care (01) ==
PROVIDERS: PCP Internal Medicine; Visit Provider Internal Medicine Gastroenterology
PROC: 0DJ08ZZ Inspection of Upper Intestinal Tract, Via Natural or Artificial Opening Endoscopic (ICD-10-PCS; CPT 44361; principal; 2024-06-19 08:00)
DX: K52.9 Noninfective gastroenteritis and colitis, unspecified (principal); R14.0 Abdominal distension (gaseous); R19.5 Other fecal abnormalities; D64.9 Anemia, unspecified; K21.00 Gastro-esophageal reflux disease with esophagitis, without bleeding; R10.9 Unspecified abdominal pain; R11.2 Nausea with vomiting, unspecified; K44.9 Diaphragmatic hernia without obstruction or gangrene; K29.50 Unspecified chronic gastritis without bleeding
CPT/HCPCS: 44361; 81025; J7120